=== PATIENT | male | born 1960 | race Caucasian/White ===

== ENCOUNTER → 2019-04-28 15:46 | Outpatient (BNVA) | payer OTHER, SELFPAY | PROVIDERS: Family Provider Family Medicine Adult Medicine; Referring Provider Emergency Medicine Emergency Medical Services; Visit Provider Specialist | DX: M25.522 Pain in left elbow (principal); M79.9 Soft tissue disorder, unspecified | CPT/HCPCS: 73080 ==

== ENCOUNTER → 2021-12-11 14:18 | Outpatient (BNVA) | payer OTHER, SELFPAY | PROVIDERS: Family Provider Family Medicine Adult Medicine; PCP Emergency Medicine Emergency Medical Services; Referring Provider Emergency Medicine Emergency Medical Services; Visit Provider Internal Medicine | DX: E05.90 Thyrotoxicosis, unspecified without thyrotoxic crisis or storm (principal); E01.0 Iodine-deficiency related diffuse (endemic) goiter; E11.9 Type 2 diabetes mellitus without complications; F17.200 Nicotine dependence, unspecified, uncomplicated | CPT/HCPCS: 99204 ==